=== PATIENT | male | born 1980 | race Caucasian/White ===

== ENCOUNTER 2022-08-05 01:48 | Emergency (ER) | payer OTHER ==
[~2022-08-05] VITALS: Ht 172.7 cm; Wt 136.1 kg
[2022-08-05 01:52] VITALS: BP 140/77
--- NOTE | 2022-08-05 01:55 | NUR ---
TO BED AMBULATORY
--- NOTE | 2022-08-05 02:29 | NUR ---
Patient lying in bed, A/Ox4, chest rise and fall symmetrical, no s/s of distress, on monitor.
[2022-08-05] MEDS ORDERED: KETOROLAC 15 MG/ML VIAL IM ONE (02:35)
--- NOTE | 2022-08-05 02:36 | NUR ---
RAD AT BEDSIDE
--- NOTE | 2022-08-05 03:30 | NUR ---
Patient lying in bed, A/Ox4, resting with eyes closed, chest rise and fall symmetrical, no s/s of distress, on monitor.
--- NOTE | 2022-08-05 04:19 | NUR ---
Dr. Hitchcock at bedside performing ultrasound.
--- NOTE | 2022-08-05 04:21 | NUR ---
Dr. Hitchcock offered to perform Arthrocentesis on patient's effected knee, to help releive pain. Dr. Hitchcock informed patient of risks vs benifits of Arthrocentesis. Patient verbalized understanding and stated he "does not want Arthrocentesis," because patient "does not want to risk infection."
[2022-08-05] MEDS ORDERED: IBUP-2213 PO (04:36)
[2022-08-05 04:48] VITALS: BP 115/68
== END 2022-08-05 04:49 | disposition home or self-care (01) ==
LOC: MED 01:48
DX: M25.561 Pain in right knee (principal); Z79.899 Other long term (current) drug therapy
CPT/HCPCS: 73562; 96372; 99285; J1885; Q0092

== ENCOUNTER 2022-09-11 22:04 | Emergency (ER) | payer OTHER ==
[~2022-09-11 22:04] MED LIST: IBUP-2213 PO
--- NOTE | 2022-09-11 22:08 | NUR ---
PATIENT CALL TO TRIAGE NO RESPONSE PATIENT LEFT WITHOUT BEING SEEN BY DR. ARMENDARIZ. NO FURTHER CARE PROVIDED FOR PATIENT.
--- NOTE | 2022-09-11 22:15 | NUR ---
CALLED FOR THE SECOND TIME NO RESPONSE
--- NOTE | 2022-09-11 22:20 | NUR ---
CALLED FOR THE THIRD TIME NO RESPONSE
== END 2022-09-11 22:08 | disposition left against medical advice (07) ==
LOC: MED 22:04
DX: M79.621 Pain in right upper arm (principal); M54.50 Low back pain, unspecified; Z53.21 Procedure and treatment not carried out due to patient leaving prior to being seen by health care provider

== ENCOUNTER 2022-09-19 04:58 | Emergency (ER) | payer OTHER ==
[~2022-09-19] VITALS: Ht 172.7 cm; Wt 131.5 kg
[2022-09-19 05:04] VITALS: BP 140/87
--- NOTE | 2022-09-19 05:07 | NUR ---
TO LOBBY FOLLOWING TRIAGE
[2022-09-19] MEDS ORDERED: KETOROLAC 60 MG/2 ML VIAL IM ONE (06:30)
[2022-09-19] MEDS ORDERED: HYDROcodone/APAP 5/325 MG 1 TAB TAB PO ONE (06:30)
[2022-09-19] MEDS ORDERED: IBUP-2213 PO (06:43)
[2022-09-19] MEDS ORDERED: ACET-8905 PO ×2 (06:43→06:45)
[2022-09-19] MEDS ORDERED: AMOX1TAB8 PO (06:43)
[2022-09-19 06:59] VITALS: BP 132/74
== END 2022-09-19 06:59 | disposition home or self-care (01) ==
LOC: MED 04:58
DX: K11.20 Sialoadenitis, unspecified (principal); K02.9 Dental caries, unspecified
CPT/HCPCS: 96372; 99283; J1885

== ENCOUNTER 2022-11-25 14:30 | Emergency (ER) | payer OTHER ==
[~2022-11-25] VITALS: Ht 172.7 cm; Wt 143.8 kg
[~2022-11-25 14:30] MED LIST changes: +ACET-8905 PO; +AMOX1TAB8 PO
[2022-11-25 14:42] VITALS: BP 155/113
[2022-11-25] MEDS ORDERED: LIDOCAINE MPF 1% 10 MG/ML VIAL INJ ONE (15:50)
[2022-11-25] MEDS ORDERED: HYDROcodone/APAP 5/325 MG 1 TAB TAB PO ONE (15:50)
--- NOTE | 2022-11-25 16:05 | NUR ---
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 +sensation, +rom, +rp refill. bleedinjg cotrolled, gauze applied, lac approx 1.5 dm curved and ragged edged. pmh: denies allergies: denies
[2022-11-25] MEDS ORDERED: IBUP-2213 PO (16:07)
[2022-11-25] MEDS ORDERED: ACET-8905 PO (16:07)
--- NOTE | 2022-11-25 16:33 | NUR ---
TAKEN TO ER BED 4 FOR LACERATION REPAIR BY PA [facility]
--- NOTE | 2022-11-25 16:36 | NUR ---
ERMD BEDSIDE FOR SUTURE TRT
[2022-11-25] MEDS ORDERED: CEPH-588 PO (17:09)
[2022-11-25] MEDS ORDERED: HYDROcodone/APAP 5/325 MG 1 TAB TAB ONE (17:09)
[2022-11-25] MEDS ORDERED: BACITRACIN OINT 500 UNITS/GM PKT TP ONE ×2 (17:25→17:27)
[2022-11-25 17:45] VITALS: BP 141/94
--- NOTE | 2022-11-25 17:45 | NUR ---
Patient discharged with v/s stable. Written and verbal after care instructions given and explained. Patient alert, oriented and verbalized understanding of instructions. Ambulatory with steady gait. All questions addressed prior to discharge. ID band removed. Patient advised to follow up with PMD. Rx of norco, keflex, ibuprofen given. Patient educated on indication of medication including possible reaction and side effects. Opportunity to ask questions provided and answered.
== END 2022-11-25 17:45 | disposition home or self-care (01) ==
LOC: MED 14:30
DX: S62.633A Displaced fracture of distal phalanx of left middle finger, initial encounter for closed fracture (principal); S61.213A Laceration without foreign body of left middle finger without damage to nail, initial encounter; Z79.1 Long term (current) use of non-steroidal anti-inflammatories (NSAID); Z79.2 Long term (current) use of antibiotics; Z79.891 Long term (current) use of opiate analgesic; W20.8XXA Other cause of strike by thrown, projected or falling object, initial encounter; Y93.89 Activity, other specified; Y92.89 Other specified places as the place of occurrence of the external cause; Y99.8 Other external cause status
CPT/HCPCS: 12002; 29130; 73140; 90471; 90715; 99283; J2001